=== PATIENT | female | born 1955 | race Two or more races ===

== ENCOUNTER 2017-04-22 16:41 | Inpatient (IN) | payer OTHER ==
[~2017-04-22] VITALS: Ht 162.6 cm; Wt 63.5 kg
[2017-04-22] MEDS ORDERED: SYNTHROID88 MCG (17:03)
[2017-04-25] MEDS ORDERED: ZANTAC300 MG PO (11:11)
[2017-04-25] MEDS ORDERED: ULTRACET PO (11:11)
[2017-04-25] MEDS ORDERED: CIPRO500 MG PO (11:11)
== END 2017-04-25 12:03 | DRG 340 ==
LOC: ER 16:41 → SURG 19:19
PROVIDERS: Surgery
PROC: BW21ZZZ Computerized Tomography (CT Scan) of Abdomen and Pelvis (ICD-10-PCS; 2017-04-22)
PROC: 0DTJ0ZZ Resection of Appendix, Open Approach (ICD-10-PCS; principal; 2017-04-22 21:00)
DX: K35.3 Acute appendicitis with localized peritonitis (principal); B96.20 Unspecified Escherichia coli [E. coli] as the cause of diseases classified elsewhere; B96.6 Bacteroides fragilis [B. fragilis] as the cause of diseases classified elsewhere

== ENCOUNTER 2017-10-09 07:03 | Outpatient (CLI) | payer OTHER ==
[~2017-10-09 07:03] MED LIST: CIPRO500 MG PO; SYNTHROID88 MCG; ULTRACET PO; ZANTAC300 MG PO
== END 2017-10-09 07:13 | disposition home or self-care (01) ==
LOC: RAD 07:03
DX: J44.9 Chronic obstructive pulmonary disease, unspecified (principal); M19.90 Unspecified osteoarthritis, unspecified site

== ENCOUNTER 2020-07-17 10:56 | Day surgery (SDC) | payer OTHER ==
[2020-07-17] MEDS ORDERED: PERCOCET 5-3251 EACH PO (14:54)
== END 2020-07-17 20:00 | disposition home or self-care (01) ==
LOC: CIR.AMB 10:56
PROVIDERS: ATTEND Surgery
DX: K62.0 Anal polyp (principal); Z20.822 Contact with and (suspected) exposure to COVID-19

== ENCOUNTER 2021-03-10 08:07 | Outpatient (CLI) | payer OTHER ==
[~2021-03-10 08:07] MED LIST changes: +PERCOCET 5-3251 EACH PO
== END 2021-03-10 08:14 | disposition home or self-care (01) ==
LOC: MAMO-SONO 08:07
PROVIDERS: ATTEND Obstetrics & Gynecology Gynecology
DX: N60.11 Diffuse cystic mastopathy of right breast (principal); N60.12 Diffuse cystic mastopathy of left breast; Z12.31 Encounter for screening mammogram for malignant neoplasm of breast; N64.4 Mastodynia

== ENCOUNTER 2021-04-12 07:50 | Outpatient (CLI) | payer OTHER | END 2021-04-12 07:55 | disposition home or self-care (01) | LOC: RAD 07:50 | PROVIDERS: ATTEND Internal Medicine Cardiovascular Disease | DX: M79.641 Pain in right hand (principal) ==

== ENCOUNTER 2022-04-07 09:12 | Outpatient (CLI) | payer OTHER | END 2022-04-07 09:17 | disposition home or self-care (01) | LOC: MAMO-SONO 09:12 | PROVIDERS: ATTEND Obstetrics & Gynecology Gynecology | DX: N64.4 Mastodynia (principal); N60.12 Diffuse cystic mastopathy of left breast; N60.11 Diffuse cystic mastopathy of right breast; E03.9 Hypothyroidism, unspecified ==

== ENCOUNTER 2022-05-06 10:51 | Outpatient (CLI) | payer OTHER | END 2022-05-06 11:06 | disposition home or self-care (01) | LOC: SONOGRAMA 10:51 | PROVIDERS: ATTEND Surgery | DX: C50.812 Malignant neoplasm of overlapping sites of left female breast (principal); N60.12 Diffuse cystic mastopathy of left breast; N60.11 Diffuse cystic mastopathy of right breast; Z80.3 Family history of malignant neoplasm of breast ==

== ENCOUNTER 2022-05-20 10:38 | Outpatient (CLI) | payer OTHER | END 2022-05-20 11:09 | disposition home or self-care (01) | LOC: SONOGRAMA 10:38 | PROVIDERS: ATTEND Surgery | DX: D24.2 Benign neoplasm of left breast (principal); C50.412 Malignant neoplasm of upper-outer quadrant of left female breast; N60.11 Diffuse cystic mastopathy of right breast; N60.12 Diffuse cystic mastopathy of left breast ==

== ENCOUNTER 2022-05-25 07:05 | Outpatient (CLI) | payer OTHER ==
[2022-06-01] MEDS ORDERED: CRESTOR5 MG PO (14:33)
== END 2022-05-25 07:06 | disposition home or self-care (01) ==
LOC: NUCLEAR 07:05
PROVIDERS: ATTEND Internal Medicine
DX: C50.412 Malignant neoplasm of upper-outer quadrant of left female breast (principal)
CPT/HCPCS: 78803; A9503

== ENCOUNTER 2022-05-26 07:07 | Outpatient (CLI) | payer OTHER | END 2022-05-26 07:19 | disposition home or self-care (01) | LOC: TOM 07:07 | PROVIDERS: ATTEND Internal Medicine | DX: C50.412 Malignant neoplasm of upper-outer quadrant of left female breast (principal) | CPT/HCPCS: 71260; 74177; Q9965 ==

== ENCOUNTER 2022-06-03 05:43 | Day surgery (SDC) | payer OTHER ==
[~2022-06-03 05:43] MED LIST changes: +CRESTOR5 MG PO
[2022-06-03] MEDS ORDERED: TRAMADOL HCL50 MG PO (14:55)
== END 2022-06-03 16:20 | disposition home or self-care (01) ==
LOC: CIR.AMB 05:43
PROVIDERS: ATTEND Surgery
DX: C50.919 Malignant neoplasm of unspecified site of unspecified female breast (principal); F17.210 Nicotine dependence, cigarettes, uncomplicated; E03.9 Hypothyroidism, unspecified; A63.0 Anogenital (venereal) warts; Z88.0 Allergy status to penicillin

== ENCOUNTER 2022-06-15 12:49 | Outpatient (CLI) | payer OTHER ==
[~2022-06-15 12:49] MED LIST changes: +TRAMADOL HCL50 MG PO
== END 2022-06-15 12:50 | disposition home or self-care (01) ==
LOC: NUCLEAR 12:49
PROVIDERS: ATTEND Internal Medicine
DX: C50.412 Malignant neoplasm of upper-outer quadrant of left female breast (principal)
CPT/HCPCS: 78472; A9560

== ENCOUNTER 2022-10-24 12:50 | Outpatient (CLI) | payer OTHER | END 2022-10-24 12:54 | disposition home or self-care (01) | LOC: NUCLEAR 12:50 | PROVIDERS: ATTEND Internal Medicine | DX: C50.812 Malignant neoplasm of overlapping sites of left female breast (principal); I42.7 Cardiomyopathy due to drug and external agent; Z51.12 Encounter for antineoplastic immunotherapy | CPT/HCPCS: 78472; A9560 ==

== ENCOUNTER 2022-11-04 05:50 | Day surgery (SDC) | payer OTHER ==
[~2022-11-04] VITALS: Ht 162.6 cm; Wt 61.2 kg
== END 2022-11-04 18:25 | disposition home or self-care (01) ==
LOC: CIR.AMB 05:50
PROVIDERS: ATTEND Surgery
DX: D48.62 Neoplasm of uncertain behavior of left breast (principal); R92.1 Mammographic calcification found on diagnostic imaging of breast; R59.0 Localized enlarged lymph nodes; C50.812 Malignant neoplasm of overlapping sites of left female breast; Z20.822 Contact with and (suspected) exposure to COVID-19
CPT/HCPCS: 19301; 38525; 38792; 19281; 19282; A9541; L8699

== ENCOUNTER → 2022-12-05 | Outpatient (CLI) | payer OTHER | END | disposition home or self-care (01) | LOC: NUCLEAR 12:56 | DX: M81.8 Other osteoporosis without current pathological fracture (principal) ==

== ENCOUNTER 2022-12-06 07:25 | Outpatient (CLI) | payer OTHER | END 2022-12-06 07:26 | disposition home or self-care (01) | LOC: TOM 07:25 | DX: C50.412 Malignant neoplasm of upper-outer quadrant of left female breast (principal); R91.1 Solitary pulmonary nodule ==

== ENCOUNTER 2023-03-09 08:43 | Outpatient (CLI) | payer OTHER | END 2023-03-09 08:44 | disposition home or self-care (01) | LOC: NUCLEAR 08:43 | DX: I42.7 Cardiomyopathy due to drug and external agent (principal) | CPT/HCPCS: 78472; A9560 ==

== ENCOUNTER 2023-10-30 07:03 | Outpatient (CLI) | payer OTHER | END 2023-10-30 07:15 | disposition home or self-care (01) | LOC: TOM 07:03 | PROVIDERS: ATTEND Internal Medicine | DX: R91.1 Solitary pulmonary nodule (principal); C50.412 Malignant neoplasm of upper-outer quadrant of left female breast | CPT/HCPCS: 71270; Q9965 ==

== ENCOUNTER 2024-01-01 07:40 | Outpatient (CLI) | payer OTHER | END 2024-01-01 07:43 | disposition home or self-care (01) | LOC: SONOGRAMA 07:40 | PROVIDERS: ATTEND Internal Medicine | DX: C50.412 Malignant neoplasm of upper-outer quadrant of left female breast (principal) ==

== ENCOUNTER 2024-06-12 07:44 | Outpatient (CLI) | payer OTHER | END 2024-06-12 07:49 | disposition home or self-care (01) | LOC: MRI 07:44 | PROVIDERS: ATTEND Internal Medicine | DX: R91.1 Solitary pulmonary nodule (principal); Z51.11 Encounter for antineoplastic chemotherapy; C50.412 Malignant neoplasm of upper-outer quadrant of left female breast | CPT/HCPCS: 70553; Q9965 ==

== ENCOUNTER → 2025-01-06 09:20 | Outpatient (CLI) | payer OTHER | END | disposition home or self-care (01) | LOC: NUCLEAR 12-25 11:30 | PROVIDERS: ATTEND Internal Medicine | DX: M81.0 Age-related osteoporosis without current pathological fracture (principal) ==